=== PATIENT | male | born 1940 ===

== ENCOUNTER 2017-07-12 11:21 | Outpatient (CLI) | payer OTHER ==
[~2017-07-12 11:21] MED LIST: ASA-EC81 MG PO; ATIVAN2 M1 PO; B12 5,000 MCG1 EACH SL; PROTONIX40 MG PO; SUPERVITE EC CAP1 MG PO; VITAMIN B-1000 MCG/2 IJ; Vasotec 10MG TAB PO
== END 2017-07-12 15:00 | disposition home or self-care (01) ==
LOC: RAD 11:21
DX: I50.89 Other heart failure (principal)

== ENCOUNTER 2017-09-02 12:54 | Outpatient (CLI) | payer OTHER | END 2017-09-02 13:06 | disposition home or self-care (01) | LOC: RAD 12:54 | DX: M25.561 Pain in right knee (principal); M25.562 Pain in left knee ==

== ENCOUNTER 2017-10-13 08:40 | Outpatient (CLI) | payer OTHER | END 2017-10-13 08:49 | disposition home or self-care (01) | LOC: LAB 08:40 | DX: M81.8 Other osteoporosis without current pathological fracture (principal); E88.89 Other specified metabolic disorders; E21.3 Hyperparathyroidism, unspecified; E56.1 Deficiency of vitamin K; E83.42 Hypomagnesemia; E55.9 Vitamin D deficiency, unspecified; M85.89 Other specified disorders of bone density and structure, multiple sites ==

== ENCOUNTER → 2018-02-03 | Outpatient (CLI) | payer OTHER | END | disposition home or self-care (01) | LOC: MRI 11:28 | DX: G30.1 Alzheimer's disease with late onset (principal) | CPT/HCPCS: 70551 ==

== ENCOUNTER → 2019-08-29 | Emergency (ER) | payer OTHER ==
[~2019-08-29] VITALS: Ht 193 cm; Wt 85.3 kg
[~2019-08-29] MED LIST changes: +ARICEPT5 MG; +LIPITOR20 MG
== END | disposition designated cancer center or children's hospital (05) ==
LOC: ER 11:58
DX: I61.8 Other nontraumatic intracerebral hemorrhage (principal)